=== PATIENT | female | born 1960 | race Caucasian/White ===

== ENCOUNTER → 2017-01-22 | Outpatient (CLI) | payer OTHER | END | disposition home or self-care (01) | LOC: LAB.O 07:18 | PROVIDERS: ATTEND Family Medicine | DX: E11.9 Type 2 diabetes mellitus without complications (principal); E03.9 Hypothyroidism, unspecified; E78.2 Mixed hyperlipidemia; I10 Essential (primary) hypertension ==

== ENCOUNTER → 2017-01-22 | Outpatient (CLI) | payer OTHER ==
--- NOTE | 2017-01-23 17:06 | MAM ---
EXAM DESCRIPTION: 3D Screening BILATERAL CLINICAL HISTORY: 56 yearsFemaleSCREENING. No complaints. No family history breast cancer. Hysterectomy 1997. No HRT. COMPARISON: 2-D digital screening bilateral examination 03/09/2014. No prior reports available. TECHNIQUE: Bilateral CC and MLO projection full-field images, 3-D tomosynthesis digital mammographic technique. Also bilateral synthesized CC/ MLO full-field images. CAD not utilized. FINDINGS: The breast parenchymal density pattern is: Scattered areas of fibroglandular density. No skin thickening or nipple retraction bilateral solitary microcalcifications. Bilateral axillary lymph nodes. Intramammary lymph node posterior left breast. No focal, stellate mass or density, focal asymmetry , and no suspicious microcalcifications bilaterally. Stable mammograms compared to prior study, taking into account differences in mammographic technique IMPRESSION: BI-RADS CATEGORY: 2 - BENIGN FINDINGS. FOLLOW UP: Routine digital bilateral screening, one year interval from January 2017. Written communication explaining the findings and follow-up, will be mailed to the patient and referring health care provider. According to the [employer], yearly mammograms are recommended starting at age 40 and continuing as long as a woman is in good health. Any breast change noted on a breast self-exam should be reported promptly to the patient's healthcare provider. Breast MRI is recommended for women with an approximately 20-25% or greater lifetime risk of breast cancer, including women with a strong family history of breast or ovarian cancer and women who have been treated for Hodgkin's disease. A negative mammographic report should not delay tissue diagnosis in patients with significant clinical history or physical findings. Extremely dense breast tissue limits the sensitivity of digital mammography. Electronically signed by: Jb Gore MD 01/23/2017 5:04 PM CDT
== END ==
LOC: MAMMO 08:16
PROVIDERS: ATTEND Family Medicine
DX: Z12.31 Encounter for screening mammogram for malignant neoplasm of breast (principal)
CPT/HCPCS: 77063; G0202

== ENCOUNTER → 2018-06-19 | Outpatient (CLI) | payer BC | LOC: LAB.O 09:31 | PROVIDERS: ATTEND Nurse Practitioner Family | DX: I10 Essential (primary) hypertension (principal); E03.9 Hypothyroidism, unspecified; E11.9 Type 2 diabetes mellitus without complications ==

== ENCOUNTER 2018-07-10 20:01 | Emergency (ER) | payer BC ==
[2018-07-10] MEDS ORDERED: PROPARACAINE 0.5% OPHTH SOL 15 ML BTTL ONE ×2 (20:16→22:35)
[2018-07-10 20:25] VITALS: TEMP 96.5
[2018-07-10] MEDS ORDERED: ONDANSETRON INJ 4 MG/2 ML VIAL IV ONE (20:39)
[2018-07-10] MEDS ORDERED: SODIUM CHLORIDE 0.9% 1000ML 1,000 ML IVS ONE (20:40)
[2018-07-10] MEDS ORDERED: fentaNYL CITRATE INJ 50 MCG/ML AMP IV ONE (20:45)
--- NOTE | 2018-07-10 21:11 | ED.PDOC ---
History of Present Illness - General Chief Complaint: Eye Problems Stated Complaint: sharp stabbing pain in left eye, BUCK Time Seen by Provider: 07/10/18 20:11 Source: patient Exam Limitations: no limitations - History of Present Illness Initial Comments: Pema Spaulding 57 y/o female stated that she had sudden onset of sharp bilateral eye pain 1-2 hours prior to er admit mostly on her RIGHT EYE >Left eye with photophobia ,dull frontal headache non radiating and blurry vision.Denies history of eye trauma stated mom recently today.No vomiting but feels nauseated.Has history of DM 2 and HTN Timing/Duration: abrupt Severity: moderate EENT Location: eye (R), eye (L) Presenting Symptoms: eye pain Improving Factors: nothing Worsening Factors: nothing Associated Symptoms: other - see hpi Allergies/Adverse Reactions: Allergies NO KNOWN ALLERGY Allergy (Unverified 07/14/14 15:29) Home Medications: Ambulatory Orders Aspirin [Baby Aspirin] 81 mg PO QD 07/14/14 Atorvastatin Calcium [Lipitor] 10 mg PO BEDTIME 07/14/14 Levothyroxine Sodium [Synthroid] 100 mcg PO DAILY@0700 07/14/14 Lisinopril & Hydrochlorothiazi [Lisinopril/Hctz 10-12.5 mg] 1 tab PO DAILY 07/14/14 Metformin HCl 500 mg PO DAILY 07/14/14 Acetamin W/Cod #3 Tab [Tylenol w/CODEINE #3] 2 ea PO Q6HRS PRN #30 tab 07/10/18 Acetazolamide 250 mg PO Q6HRS 60 Days #90 tab 07/10/18 Ondansetron [Zofran Odt] 4 mg PO Q8HRS PRN #14 tab 07/10/18 Timolol Maleate (Ophth) [Timoptic] 1 drop OP BID #1 bottle 07/10/18 Review of Systems - Review of Systems Constitutional: States: no symptoms reported EENTM: States: see HPI, eye pain, blurred vision Respiratory: States: no symptoms reported Cardiology: States: no symptoms reported Gastrointestinal/Abdominal: States: no symptoms reported Genitourinary: States: no symptoms reported Musculoskeletal: States: no symptoms reported Skin: States: no symptoms reported Neurological: States: see HPI, headache Endocrine: States: no symptoms reported Past Medical History (General) - Patient Medical History Hx Cardiac Disorders: No - high cholesterol Hx Congestive Heart Failure: No Hx Hypertension: Yes Hx Thyroid Disease: Yes Hx Diabetes: Yes Surgical History: Hysterectomy, other - btl,hysterectomy - Vaccination History Hx Tetanus, Diphtheria Vaccination: No Hx Influenza Vaccination: Yes Hx Pneumococcal Vaccination: No - Social History Hx Tobacco Use: No Hx Alcohol Use: No Family Medical History - Family History Mother Living Status: Age at (years of age): 90 Hx Family Hypertension: Yes - mom Hx Family Diabetes: Yes Hx Family Cancer: Yes - lung-dad Hx Family;Other: alzhiemer Father Hx Family Hypertension: Yes Physical Exam - Physical Exam General Appearance: Alert, No apparent distress, Other - in pain Eye Exam: right other - hyperemic palpebral conjunctiva,IOP right 47,50 left-8;VA-right:20/200;left:20/70;fluorescein dye uptake negative Ear Exam: bilateral ear: auricle normal, canal normal Nasal Exam: normal inspection Throat Exam: normal mouth inspection Neck: full range of motion, supple, normal inspection, trachea midline Cardiovascular/Respiratory: regular rate, rhythm, no M/R/G, normal peripheral pulses Abdominal Exam: non-tender, no organomegaly Neurologic: alert, oriented x 3 Skin Exam: normal color, warm/dry Progress - Progress Progress: 07/10/18 22:08 Vital Signs - 8 hr 07/10/18 07/10/18 07/10/18 20:18 21:04 21:39 Temperature 96.5 F L Pulse Rate [ 84 75 72 left] Respiratory 20 20 20 Rate Blood Pressure 134/81 128/83 120/80 [left] O2 Sat by Pulse 98 98 98 Oximetry - Results/Orders Results/Orders: 07/10/18 20:45 IV Care:Saline Lock per Protoc QSHIFT 07/10/18 21:08 Head [CT] Stat 07/10/18 21:30 Timolol Maleate 0.25% Ophth [Timoptic 0.25% Ophth Crystal] 1 drop RIGHT_EYE BID 07/10/18 21:49 Orbits [CT] Stat Laboratory Results - last 24 hr 07/10/18 07/10/18 20:45 20:45 WBC 7.6 RBC 4.14 L Hgb 12.8 Hct 37.6 MCV 90.8 MCH 30.9 MCHC 33.9 RDW 13.4 Plt Count 191 MPV 7.2 L Absolute Neuts (auto) 4.20 Absolute Lymphs (auto) 2.70 Absolute Monos (auto) 0.60 Absolute Eos (auto) 0.10 Absolute Basos (auto) 0.00 Neutrophils % 55.2 Lymphocytes % 35.3 Monocytes % 7.4 Eosinophils % 1.6 Basophils % 0.5 Sodium 138 Potassium 3.6 Chloride 103 Carbon Dioxide 28 Anion Gap 10.6 L BUN 10 Creatinine 0.78 BUN/Creatinine Ratio 12.8 Random Glucose 144 H Serum Osmolality 277.3 Calcium 8.8 Total Bilirubin 0.6 AST 36 ALT 60 Alkaline Phosphatase 70 C-Reactive Protein 0.5 Serum Total Protein 6.6 Albumin 4.1 Globulin 2.5 Albumin/Globulin Ratio 1.6 Discuss test result that she will be treated presumptively for possible glaucoma since tonometer findings showing elevated IOP RIGHT EYE-50-47 mmHg - EKG/XRAY/CT CT Ordered: Yes - orbits no acute abnormalities noted Departure - Departure Clinical Impression: Ocular pain, right eye, Blurred vision, right eye Eyes sensitive to light Qualifiers: Laterality: right Qualified Code(s): H53.141 - Visual discomfort, right eye Time of Disposition: 22:52 Disposition: Discharge to Home or Self Care Condition: Fair Departure Forms: ED Discharge - Pt. Copy, Patient Portal Self Enrollment Instructions: DI for Eye Pain Referrals: Vern Solomon MD [Primary Care Provider] - 1-2 Weeks Prescriptions: Acetamin W/Cod #3 Tab [Tylenol w/CODEINE #3] 2 ea PO Q6HRS PRN #30 tab PRN Reason: Pain Acetazolamide 250 mg PO Q6HRS 60 Days #90 tab Ondansetron [Zofran Odt] 4 mg PO Q8HRS PRN #14 tab PRN Reason: Nausea Timolol Maleate (Ophth) [Timoptic] 1 drop OP BID #1 bottle Home Medications: Ambulatory Orders Aspirin [Baby Aspirin] 81 mg PO QD 07/14/14 Atorvastatin Calcium [Lipitor] 10 mg PO BEDTIME 07/14/14 Levothyroxine Sodium [Synthroid] 100 mcg PO DAILY@0700 07/14/14 Lisinopril & Hydrochlorothiazi [Lisinopril/Hctz 10-12.5 mg] 1 tab PO DAILY 07/14/14 Metformin HCl 500 mg PO DAILY 07/14/14 Acetamin W/Cod #3 Tab [Tylenol w/CODEINE #3] 2 ea PO Q6HRS PRN #30 tab 07/10/18 Acetazolamide 250 mg PO Q6HRS 60 Days #90 tab 07/10/18 Ondansetron [Zofran Odt] 4 mg PO Q8HRS PRN #14 tab 07/10/18 Timolol Maleate (Ophth) [Timoptic] 1 drop OP BID #1 bottle 07/10/18 Additional Instructions: Return to emergency room as needed;Need to see featheredger and reducer machine in am for re-check eye pressure
[2018-07-10] MEDS ORDERED: ACETAZOLAMIDE IV ONE (21:17)
[2018-07-10] MEDS ORDERED: TIMOLOL MALEATE 0.25% RIGHT_EYE SCH (21:30)
[2018-07-10] MEDS ORDERED: HYDROmorphone HCL INJ 2 MG/ML VIAL IV ONE (22:11)
--- NOTE | 2018-07-10 22:24 | CT ---
CLINICAL HISTORY: eye pain COMPARISON: None. TECHNIQUE: CT ORBITS WITHOUT IV CONTRAST on 07/10/2018 9:49 PM [employer] This exam was performed according to our departmental dose-optimization program, which includes automated exposure control, adjustment of the mA and/or kV according to patient size and/or use of iterative reconstruction technique. FINDINGS: There is no acute fracture. Left maxillary sinus is completely opacified. Orbits and globes are unremarkable. Mastoid air cells are clear. Temporomandibular joints are intact. There are no significant soft tissue abnormalities. IMPRESSION: Unremarkable appearance of the orbits. Electronically signed by: Lino Wilder MD 07/10/2018 10:22 PM [employer]
[2018-07-10] MEDS ORDERED: PROPARACAINE 0.5% OPHTH SOL 15 ML BTTL RIGHT_EYE ONE (22:37)
[2018-07-10] MEDS ORDERED: HYDROcodone 10MG/APAP 325MG 1 EA TAB PO ONE (23:02)
[2018-07-10] MEDS ORDERED: HYDROCOD/APAP 10/325 (ER DISP) # 3 tablets PO ONE (23:02)
[2018-07-10] MEDS ORDERED: ONDANSETRON ODT (ER DISP) 8 MG TAB PO ONE (23:02)
[2018-07-10 23:16] VITALS: BP 109/70; O2SAT 96
== END 2018-07-10 23:16 | disposition home or self-care (01) ==
LOC: ER 20:01
DX: H57.12 Ocular pain, left eye (principal); H53.141 Visual discomfort, right eye; H53.8 Other visual disturbances; E78.00 Pure hypercholesterolemia, unspecified; I10 Essential (primary) hypertension; E07.9 Disorder of thyroid, unspecified; E11.9 Type 2 diabetes mellitus without complications; Z79.899 Other long term (current) drug therapy; Z79.82 Long term (current) use of aspirin
CPT/HCPCS: 36415; 70480; 80053; 85025; 86140; J1170; J2405; J3010; J7030

== ENCOUNTER 2020-01-31 12:12 | Emergency (ER) | payer BC ==
[2020-01-31 12:32] VITALS: TEMP 97.4; O2SAT 98
[2020-01-31] MEDS ORDERED: HYDROcodone 7.5MG/APAP 325MG 1 EA TAB PO ONE (12:33)
[2020-01-31] MEDS ORDERED: CLINDAMYCIN HCL CAP 150 MG CAP PO ONE (12:33)
[2020-01-31] MEDS ORDERED: SUCRALFATE 1 GM/10 ML 1 GM UD PO ONE (12:33)
--- NOTE | 2020-01-31 13:25 | ED.PDOC ---
History of Present Illness - General Chief Complaint: General Stated Complaint: tooth pain, chest tightness last night Time Seen by Provider: 01/31/20 12:32 Source: patient Exam Limitations: no limitations - History of Present Illness Initial Comments: The patient is a 59-year-old female presented emergency room secondary to dental pain on her left lower most posterior molar which has significant decay present. No evidence of any abscess formation. She is not on any antibiotic at this point. The patient had about 3 hours of some chest tightness last night in the middle of the night. It resolved on its own. Nothing made it better or worse. She has been taking a significant amount of anti- inflammatories with no GI prophylaxis. No fever. No current chest pain. No history of any significant cardiac history on her own but she does have a significant family history. She has not had chest pain for more than 10 hours now. The patient is a nurse here at the emergency room. Vital signs are currently stable. Aside from the tooth pain she is otherwise asymptomatic. Chest pain is not made better or alleviated by anything that she did or did not do. No worse with exertion. Timing/Duration: other Severity: moderate Improving Factors: nothing Worsening Factors: eating Associated Symptoms: chest pain Allergies/Adverse Reactions: Allergies NO KNOWN ALLERGY Allergy (Unverified 07/14/14 15:29) Home Medications: Ambulatory Orders Aspirin [Baby Aspirin] 81 mg PO QD 07/14/14 Atorvastatin Calcium [Lipitor] 10 mg PO BEDTIME 07/14/14 Levothyroxine Sodium [Synthroid] 100 mcg PO DAILY@0700 07/14/14 Lisinopril & Hydrochlorothiazi [Lisinopril/Hctz 10-12.5 mg] 1 tab PO DAILY 07/14/14 Metformin HCl [Metformin Hydrochloride] 500 mg PO DAILY 07/14/14 Acetamin W/Cod #3 Tab [Tylenol w/CODEINE #3] 2 ea PO Q6HRS PRN #30 tab 07/10/18 Acetazolamide 250 mg PO Q6HRS 60 Days #90 tab 07/10/18 Ondansetron [Zofran Odt] 4 mg PO Q8HRS PRN #14 tab 07/10/18 Timolol Maleate (Ophth) [Timoptic] 1 drop OP BID #1 bottle 07/10/18 Clindamycin HCl 300 mg PO Q8HR #30 cap 01/31/20 Magnesium Oxide [Hm Magnesium] 400 mg PO BID #30 tab 01/31/20 Tramadol HCl 50 mg PO Q8HR PRN #20 tab 01/31/20 Review of Systems - Review of Systems Constitutional: States: malaise - The patient slept poorly EENTM: States: other - Poor dentition Respiratory: States: no symptoms reported Cardiology: States: chest pain - Now resolved Gastrointestinal/Abdominal: States: no symptoms reported Genitourinary: States: no symptoms reported Musculoskeletal: States: no symptoms reported Skin: States: no symptoms reported Neurological: States: no symptoms reported Endocrine: States: no symptoms reported Hematologic/Lymphatic: States: no symptoms reported All other Systems: Reviewed and Negative Past Medical History (General) - Patient Medical History Hx Cardiac Disorders: No - high cholesterol Hx Congestive Heart Failure: No Hx Hypertension: Yes Hx Thyroid Disease: Yes Hx Diabetes: Yes - Vaccination History Hx Tetanus, Diphtheria Vaccination: No Hx Influenza Vaccination: Yes Hx Pneumococcal Vaccination: No - Social History Hx Tobacco Use: No Hx Alcohol Use: No Family Medical History - Family History Mother Living Status: Age at (years of age): 90 Hx Family Hypertension: Yes - mom Hx Family Diabetes: Yes Hx Family Cancer: Yes - lung-dad Hx Family;Other: alzhiemer Father Family History: No Known Hx Family Hypertension: Yes Physical Exam - Physical Exam General Appearance: Alert, Comfortable, No apparent distress Eye Exam: bilateral normal Ears, Nose, Throat: hearing grossly normal, other - Poor dentition. No abscess. Neck: other - No obvious significant lymphadenopathy Respiratory: lungs clear, normal breath sounds, no respiratory distress, no accessory muscle use Cardiovascular/Chest: normal peripheral pulses, regular rate, rhythm, no edema Rectal Exam: deferred Back Exam: normal inspection Extremity: normal range of motion, no pedal edema, normal capillary refill Neurologic: ball warper tender II-XII nml as tested, alert, normal mood/affect, oriented x 3 Skin Exam: normal color Comments: Vital Signs - 24 hr 01/31/20 12:18 Temperature 97.4 F L Pulse Rate [ 92 H left brachial] Respiratory 16 Rate Blood Pressure 158/100 [left brachial] O2 Sat by Pulse 98 Oximetry Progress - Progress Progress: 01/31/20 13:27 The patient is a 59-year-old female presented emergency room secondary to dental pain from dental caries along with some chest discomfort last night. The patient will be written for clindamycin for the tooth. She needs to take the antibiotic with food to reduce stomach upset. The patient will also be written for some tramadol for as needed use to control the dental pain. The chest discomfort last night, at least does not appear to have been due to a heart attack. This is most likely chest discomfort related to anti-inflammatory use. She does need to black pickler some Pepcid or omeprazole and take it for a couple of weeks along with some as needed liquid Maalox. She needs to maintain a bland diet. Cardiac enzymes are negative here. This certainly does not rule out coronary artery disease, however there is no definitive indication of a cardiac source at this time. Keep routine follow-up with primary care doctor. melody leonard [phone] [facility] consulted - Results/Orders Results/Orders: Single view chest x-ray, read is still pending however I see no evidence of widening the mediastinum, no infiltrate, no pneumothorax and no volume overload. EKG shows normal sinus rhythm at 90 bpm. Normal QT interval. There is a flipped T wave in inferior leads of 3. Otherwise no ST segment or T wave changes indicative of acute ischemia. Normal axis. Normal R wave progression. Laboratory Tests 01/31/20 01/31/20 01/31/20 12:40 12:40 12:40 WBC 8.7 RBC 4.30 Hgb 13.6 Hct 38.8 MCV 90.3 MCH 31.6 H MCHC 35.0 RDW 13.3 Plt Count 215 MPV 7.4 Absolute Neuts (auto) 5.30 Absolute Lymphs (auto) 2.40 Absolute Monos (auto) 0.60 Absolute Eos (auto) 0.30 Absolute Basos (auto) 0.10 Neutrophils % 60.8 Lymphocytes % 28.0 Monocytes % 7.4 Eosinophils % 3.1 Basophils % 0.7 PT 9.9 INR 1.00 PTT (SP) 22.2 Sodium 137 Potassium 3.7 Chloride 101 Carbon Dioxide 24 Anion Gap 15.7 BUN 15 Creatinine 0.94 BUN/Creatinine Ratio 16.0 Random Glucose 134 H Serum Osmolality 276.6 Calcium 9.0 Magnesium Total Bilirubin 0.8 AST 73 H ALT 99 H Alkaline Phosphatase 58 Creatine Kinase 86 CK-MB (CK-2) 1.7 CK-MB (CK-2) % Not Reportable Troponin I < 0.02 B-Natriuretic Peptide 19.3 Serum Total Protein 7.1 Albumin 4.2 Globulin 2.9 Albumin/Globulin Ratio 1.4 01/31/20 12:40 WBC RBC Hgb Hct MCV MCH MCHC RDW Plt Count MPV Absolute Neuts (auto) Absolute Lymphs (auto) Absolute Monos (auto) Absolute Eos (auto) Absolute Basos (auto) Neutrophils % Lymphocytes % Monocytes % Eosinophils % Basophils % PT INR PTT (SP) Sodium Potassium Chloride Carbon Dioxide Anion Gap BUN Creatinine BUN/Creatinine Ratio Random Glucose Serum Osmolality Calcium Magnesium 1.3 L Total Bilirubin AST ALT Alkaline Phosphatase Creatine Kinase CK-MB (CK-2) CK-MB (CK-2) % Troponin I B-Natriuretic Peptide Serum Total Protein Albumin Globulin Albumin/Globulin Ratio Departure - Departure Clinical Impression: Dental caries, Atypical chest pain, Hypomagnesemia Disposition: Discharge to Home or Self Care Condition: Fair Departure Forms: ED Discharge - Pt. Copy, Patient Portal Self Enrollment Diet: bland diet, diabetic diet Activity: increase activity as tolerated Referrals: Vern Solomon MD [Primary Care Provider] - 1-2 Weeks Prescriptions: Clindamycin HCl 300 mg PO Q8HR #30 cap Tramadol HCl 50 mg PO Q8HR PRN #20 tab PRN Reason: Moderate Pain Magnesium Oxide [Hm Magnesium] 400 mg PO BID #30 tab Home Medications: Ambulatory Orders Aspirin [Baby Aspirin] 81 mg PO QD 07/14/14 Atorvastatin Calcium [Lipitor] 10 mg PO BEDTIME 07/14/14 Levothyroxine Sodium [Synthroid] 100 mcg PO DAILY@0700 07/14/14 Lisinopril & Hydrochlorothiazi [Lisinopril/Hctz 10-12.5 mg] 1 tab PO DAILY 07/14/14 Metformin HCl [Metformin Hydrochloride] 500 mg PO DAILY 07/14/14 Acetamin W/Cod #3 Tab [Tylenol w/CODEINE #3] 2 ea PO Q6HRS PRN #30 tab 07/10/18 Acetazolamide 250 mg PO Q6HRS 60 Days #90 tab 07/10/18 Ondansetron [Zofran Odt] 4 mg PO Q8HRS PRN #14 tab 07/10/18 Timolol Maleate (Ophth) [Timoptic] 1 drop OP BID #1 bottle 07/10/18 Clindamycin HCl 300 mg PO Q8HR #30 cap 01/31/20 Magnesium Oxide [Hm Magnesium] 400 mg PO BID #30 tab 01/31/20 Tramadol HCl 50 mg PO Q8HR PRN #20 tab 01/31/20 Additional Instructions: The patient is a 59-year-old female presented emergency room secondary to dental pain from dental caries along with some chest discomfort last night. The patient will be written for clindamycin for the tooth. She needs to take the antibiotic with food to reduce stomach upset. The patient will also be written for some tramadol for as needed use to control the dental pain. The chest discomfort last night, at least does not appear to have been due to a heart attack. This is most likely chest discomfort related to anti-inflammatory use. She does need to black pickler some Pepcid or omeprazole and take it for a couple of weeks along with some as needed liquid Maalox. She needs to maintain a bland diet. Cardiac enzymes are negative here. This certainly does not rule out coronary artery disease, however there is no definitive indication of a cardiac source at this time. Keep routine follow-up with primary care doctor. The patient's magnesium level was also low and she will be written for some mag nesium oxide.
[2020-01-31 13:32] VITALS: BP 120/77
--- NOTE | 2020-01-31 13:34 | RAD ---
EXAM DESCRIPTION: Chest,1 View CLINICAL HISTORY: 59 years Female, chest discomfort last night COMPARISON: None. TECHNIQUE: AP portable chest. FINDINGS/IMPRESSION: The lungs are clear. No focal consolidation, pneumothorax or pleural effusion seen. Mild prominence of the right paratracheal region, nonspecific, and may be related to adenopathy or mild dilation of the SVC. The heart is normal in size. No acute osseous abnormality. Electronically signed by: Rodo Ugalde DO 01/31/2020 1:32 PM CDT
== END 2020-01-31 13:35 | disposition home or self-care (01) ==
LOC: ER 12:12
DX: R07.89 Other chest pain (principal); K02.9 Dental caries, unspecified; E83.42 Hypomagnesemia; I10 Essential (primary) hypertension; E07.9 Disorder of thyroid, unspecified; E11.9 Type 2 diabetes mellitus without complications; E78.00 Pure hypercholesterolemia, unspecified; Z79.899 Other long term (current) drug therapy; Z79.84 Long term (current) use of oral hypoglycemic drugs; Z79.82 Long term (current) use of aspirin